=== PATIENT | male | born 1970 | race Caucasian/White ===

== ENCOUNTER → 2018-10-05 07:43 | Outpatient (CLI) | payer OTHER, SELFPAY ==
--- NOTE | 2018-10-05 | DI.MRI.S_ITS ---
PROCEDURE: MR KNEE RT WO CON INDICATIONS: CHRONIC PAIN OF RIGHT KNEE TECHNIQUE: Noncontrast sagittal PD fast spin echo and T2 fast spin echo with fat saturation, sagittal 3-D FLASH with fat saturation; coronal T1 spin echo and PD fast spin echo with fat saturation, and axial PD fast spin echo with fat saturation through the knee. COMPARISON: None. FINDINGS: Image quality: Diagnostic. Bones and joint: There is no acute fracture or dislocation. No suspicious osseous lesions are evident. However, there is a small area of increased signal intensity on the fluid sensitive sequences and intermediate to decreased signal intensity on the T1 images involving the proximal tibial metaphysis which is far removed from the articular surface and could potentially represent a small enchondroma, but is not well evaluated on this exam. No adjacent marrow edema or other suspicious imaging characteristics are evident. No significant knee joint effusion is identified. There is a trace Bethea's cyst. Irregularity of the hyaline articular cartilage within the patellofemoral compartment is present. Small areas of cartilaginous fissuring are present. Minimal degenerative/reactive marrow changes are noted along the lateral patellar facet. The hyaline articular cartilage within the medial and lateral tibiofemoral compartments demonstrates mild heterogeneity, but is otherwise within normal limits. Cruciate ligaments: The anterior and posterior cruciate ligaments are intact. Menisci: No displaced tears of the medial and lateral menisci are evident. The posterior root ligaments are intact. Medial structures: The medial collateral ligament is intact. The semimembranosus tendon insertion is intact. The imaged portions of the pes anserinus tendons are unremarkable. No significant fluid is contained within the pes anserinus bursa. Lateral structures: The popliteal tendon is mildly thickened and slightly edematous at its origin, but is otherwise intact. The lateral collateral ligament proper (fibular collateral ligament) and the proximal tibiofibular ligaments are intact. The distal aspect of the biceps femoris tendon and the iliotibial band are intact. Anterior structures: The quadriceps and patellar tendons are intact. Mild increased signal is identified involving the proximal distal margins of the patellar tendon. There is edema within the prepatellar soft tissues. There is no significant edema in the infrapatellar fat pad. IMPRESSION: 1. Early patellofemoral chondromalacia. 2. Mild patellar tendinopathy with overlying prepatellar bursal thickening. Please correlate clinically to exclude bursitis. 3. Small Bethea cyst. 4. Mild proximal popliteal tendinopathy. 5. Small benign-appearing lesion involving the proximal medial tibial metaphysis may represent intraosseous ganglion cyst related to the medial patellofemoral ligament attachment versus less likely an enchondroma. Correlation with conventional radiographs may be of value. Dictated by: Fausto Kelley M.D. on 10/05/2018 at 8:15 Approved by: Fausto Kelley M.D. on 10/05/2018 at 8:34
== END ==
PROVIDERS: PCP Nurse Practitioner Family; Visit Provider Nurse Practitioner Family
DX: M25.561 Pain in right knee (principal); G89.29 Other chronic pain; M22.41 Chondromalacia patellae, right knee; M71.21 Synovial cyst of popliteal space [Baker], right knee; M67.961 Unspecified disorder of synovium and tendon, right lower leg
CPT/HCPCS: 73721